=== PATIENT | female | born 1955 | race Caucasian/White ===

== ENCOUNTER 2017-12-22 14:40 | Inpatient (IN) | payer BC ==
[~2017-12-22] VITALS: Ht 152.4 cm; Wt 58.1 kg
[2017-12-29] MEDS ORDERED: LEVOTHYROXINE25 MCG PO (15:56)
[2017-12-29] MEDS ORDERED: VITAMIN B-12500 MC3 SL (15:56)
[2017-12-29] MEDS ORDERED: XANAX0.5 MG PO (15:58)
[2017-12-29] MEDS ORDERED: MAG GLYCINATE100 MG PO (15:58)
--- NOTE | 2017-12-30 09:30 | NUR ---
RESTS WATCHING TV. STATES NO NEEDS. IV PATENT. UPDATE GIVEN.
--- NOTE | 2017-12-30 09:50 | NUR ---
up to br. warm blanket on.
--- NOTE | 2017-12-30 12:24 | NUR ---
12/30/17 1224 Josie Shelton 1211 PT ARRIVED IN PACU WITH ORAL AIRWAY IN PLACE. 1216 PT AWAKE. ORAL AIRWAY REMOVED BY ANESTHESIA.
--- NOTE | 2017-12-30 13:10 | NUR ---
PT TO FLOOR FROM PACU AT 1300 VIA SONY, ACCOMPANIED BY ALICIA FISHER. RECIEVED BEDSIDE REPORT FROM PHILLIP. PT MOVED SELF FROM STRECHER TO BED. PT DENIES PAIN OR DISCOMFORT. DENIES NAUSEA. PT'S DAUGHTER AT BEDSIDE.
--- NOTE | 2017-12-30 13:30 | NUR ---
THIS GERIATRICS PHYSICIAN AND MARCE AKHN ASSISTED THE PATIENT BY GETTING COMFORTABLE IN BED. WELL GETTING FRESH WATER. CALL LIGHT WITHIN REACH. NO OTHER NEEDS AT THIS TIME.
--- NOTE | 2017-12-30 14:35 | NUR ---
PT IN BED, TOLERATED CLEAR LIQUIDS. REPORTS "MILD NAUSEA", BUT STATED THAT SHE DOES NOT WANT TO TAKE ANY MEDICATION FOR THIS AT THIS TIME. DENIES PAIN. REPORTS THAT THE TINGLING SENSATION IN HER LEGS HAS DECREASED, BUT NOT YET RESOLVED. VSS. PT DENIES NEEDS AT THIS TIME. PERSONAL SUPPLIES IN REACH, CALL LIGHT IN REACH.
--- NOTE | 2017-12-30 14:54 | NUR ---
PT C/O NAUSEA. GAVE ZOFRAN 4 MG IV PRN. DENIED PAIN. SITTING UP IN BED.
--- NOTE | 2017-12-30 15:44 | NUR ---
PATIENT RESTING IN BED WITH EYES CLOSED. WARM BLANKET GIVEN. PATIENT STATES THAT HER SHE HAS NO MORE NAUSEA. CALL BUTTON IN REACH. FRESH ICE WATER GIVEN. NO OTHER NEEDS AT THIS TIME.
--- NOTE | 2017-12-30 15:54 | NUR ---
PT IN BED, HOB ELEVATED. RESTING WITH EYES CLOSED. AROUSED TO VERBAL STIMULI. REPORTED THAT SHE STILL HAS SOME NAUSEA, BUT STATED THAT IT WAS NOT VERY BAD, AND REFUSED PRN ANTI NAUSEA MEDICATION AT THIS TIME. PT DENIED PAIN AT THIS TIME.
--- NOTE | 2017-12-30 17:15 | NUR ---
PT TO FLOOR FOLLOWING SURGERY. HAS VAG PACKING IN PLACE, SCANT BLOODY DRAINAGE FROM THIS. JANE CATHETER IN PLACE, BRIGHT YELLOW URINE. HAS DENIED PAIN THUS FAR. DID C/O NAUSEA, RECIEVED ZOFRAN 4 MG IV PRN, AND PT REPORTED RELIEF WITH THIS. HAS LR INFUSING AT 125 CC/HR. TOLERATED CLEAR LIQUIDS. ADAT.
--- NOTE | 2017-12-30 18:00 | NUR ---
PT HAD MODERATE AMOUNT OF BLOODY DRAINAGE FROM VAGINA. CHUCKS AND GOWN CHANGED, MESH PANTIES AND NANNETTE PAD PUT ON. PT THEN SAT UP AT EDGE OF BED, DANGLED FOR APROXIMATELY 4 MINUTES. PT TOLERATED THIS VERY WELL. PT THEN STOOD UP, AMBULATED IN ROOM. WALKED FROM SIDE OF BED NEXT TO GAGE DOOR, AROUND BED, INTO BATHROOM. AT THIS POINT PT BECAME NAUSEATED, HAD MODERATE AMOUNT OF RED TINGED CLEAR EMESIS IN TOILET. PT REPORTED THAT SHE NO LONGER FELT NAUSEATED AFTER EPISODE OF EMESIS. AMBULATED BACK TO BED WITH STANDBY ASSIST, AND IS NOW SITTING UP AT EDGE OF BED, CALL BUTTON AT SIDE, PERSONAL SUPPLIES IN REACH. PT REQUESTED CLEAR LIQUID TRAY, WHICH THIS RN ORDERED. URINE IN JANE BAG IS BRIGHT YELLOW.
--- NOTE | 2017-12-30 18:31 | NUR ---
Patient self-transferred from chair to bed. requested assistance with blankets and SCD. Brought warm blankets, requested help from Shwetha for SCD. Call light in reach.
--- NOTE | 2017-12-30 18:38 | NUR ---
PT IN BED. ATTEMPTED TO EAT CLEAR LIQUIDS, HAD EMESIS OF 100 CC. ENCOURAGED PT TO SLOW DOWN, JUST HAVE ICE CHIPS FOR NOW. PT AGREED. GAVE PT REGLAN 10 MG IV PRN. PERSONAL SUPPLIES AND CALL BUTTON IN REACH. PT DENIED OTHER NEEDS.
--- NOTE | 2017-12-30 18:52 | NUR ---
PATIENT RESTING IN BED. PATIENT HAD EMESIS OF 100ML. RN NOTIFIED. PATIENT STATES THAT SHE HAS 0 PAIN, BUT FEELS NAUSEOUS. REFUSED CLEAR LIQUID DINNER BECAUSE OF EMESIS. CALL LIGHT WITHIN REACH. NO OTHER NEEDS AT THIS TIME.
--- NOTE | 2017-12-30 20:00 | NUR ---
RECEIVED REPORT AT 1900, FOUND PT IN BED VOMITING. DAY SHIFT RN GAVE 12.5MG OF PHENERGAN. WILL CONTINUE TO MONITOR. PT DENIED PAIN.
--- NOTE | 2017-12-30 21:23 | NUR ---
VITALS AND I&OS DONE AND CHARTED. BEDSIDE TABLE AND CALL LIGHT WITHIN REACH.
--- NOTE | 2017-12-30 21:25 | NUR ---
ROUNDED CHARGE. PATIENT IS RESTING IN BED. PATIENT DENIES ANY PAIN AT THIS TIME. NO NEEDS NOTED. CALL LIGHT IN REACH.
--- NOTE | 2017-12-30 22:00 | NUR ---
V/S ARE WDL OVERALL, PT AT THIS TIME DENIES N/V. PAIN AT THIS TIME IS TOLERABLE STATED BY PT. ALL LOBES ARE CLEAR, ABD SOUNDS ARE HYPOACTIVE, PT IS PASSING GAS. URINE OUTPUT IS ADEQUATE, VAGINAL BLEEDING IS MINIMAL. NO NEW CONCERNS AT THIS TIME.
--- NOTE | 2017-12-31 | NUR ---
PT IS SLEEPING.
--- NOTE | 2017-12-31 02:00 | NUR ---
ABD SOUNDS ARE NORMALLY ACTIVE. PT DENIES N/V AND PAIN. VAGINAL BLEEDING IS SCANT AT THIS TIME. 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 NO NEW CONCERNS AT THIS TIME.
--- NOTE | 2017-12-31 04:07 | NUR ---
PT IS SLEEPING AT THIS TIME.
--- NOTE | 2017-12-31 05:55 | NUR ---
VITALS AND I&OS DONE AND CHARTED. GARBAGES EMPTIED. BEDSIDE TABLE AND CALL LIGHT IN REACH. PT NEEDS NOTHING ELSE AT THIS TIME.
--- NOTE | 2017-12-31 06:34 | NUR ---
AT START OF SHIFT PT HAD N/V. ZOFRAN, REGLAN AND PHENERGAN WAS GIVEN. PT HAS SINCE DENIED N/V AND PAIN. VAGINAL BLEEDING WAS MODERATE AT START OF SHIFT AND IS NOW SCANT. V/S ARE WDL, ABD SOUNDS ARE PRESENT AND PT IS PASSING GAS. PT SLEPT MOST OF THE NIGHT. PT WALKED AT 0615 TODAY UP AND DOWN THE GAGE. JANE WAS D/C AT 0630. NO NEW CONCERNS AT THIS TIME.
[2017-12-31] MEDS ORDERED: L-METHYLFOLATE7.5 M1 PO (07:52)
[2017-12-31] MEDS ORDERED: PHILLIPS' COLO1 EACH PO (07:53)
--- NOTE | 2017-12-31 08:10 | NUR ---
STANDBY ASSIST TO BATHROOM. PATIENT SAYS SHE MAY BE ON TOILET FOR A BIT, WILL USE CALL BUTTON.
[2017-12-31] MEDS ORDERED: VITAMIN C500 M1 PO (08:42)
--- NOTE | 2017-12-31 08:49 | NUR ---
MED REC COMPLETE
--- NOTE | 2017-12-31 09:21 | NUR ---
DR. WEBER TO ROOM REMOVED PACKING THIS MORNING. PATIENT UP AMBULATING IN HALLS. NO NAUSEA/VOMITING, TOLERATED BREAKFAST WELL. PATIENT STATES " I AM NOT HAVING ANY PAIN " REPORTS 0/10 ON PAIN SCALE. SALINE LOCKED. SET UP FOR SHOWER.
--- NOTE | 2017-12-31 09:58 | NUR ---
PT IS UP IN ROOM WALKING AROUND, CALL LIGHT IN REACH. PT DID NOT NEED ANYTHING AT THE MOMENT
--- NOTE | 2017-12-31 11:00 | NUR ---
PATIENT PVR PROGRESSING WELL. PATIENT UP AMBULATING IN HALLS. REPORTS SOME SORENESS, RATES PAIN 2/10 ON PAIN SCALE. DENIES NEEDS FOR PAIN CONTROL. PATIENT NOW SITTING UP AND EATING SOME LUNCH. VS STABLE.
--- NOTE | 2017-12-31 11:45 | NUR ---
DISCUSSED DISCHARAGE INSTRUCITONS WITH PATIENT. DISCUSSED S/S OF INFECTION. MEDICAITON MANAGMENT. PATIENT ABLE TO TEACH BACK. PROVIDED DAUGHTER WITH SCRIPTS TO FILL, PATIENT VOIDING WELL. PATIENT ABLE TO TEACH BACK RESTRICITONS. WILL BE STAYING WITH DAUGTER NEXT COUPLE OF WEEKS.
--- NOTE | 2017-12-31 12:22 | NUR ---
DR. WEBER TO ROOM, DISCUSSED DISHARGE INSTRUCTIONS. PLAN TO DISCHARGE PATIENT NOW. FULL BODY ASSESMENT DONE. PATIENT ABLE TO TEACH BACK DISCHARGE INSTRUCTIONS.
[2017-12-31] MEDS ORDERED: ULTRAM50 MG PO (12:34)
[2017-12-31] MEDS ORDERED: IBUPROFEN800 MG PO (12:34)
[2017-12-31] MEDS ORDERED: KONDREMUL2.5 ML/5 M PO (12:35)
[2017-12-31] MEDS ORDERED: REGLAN10 MG PO (12:35)
[2017-12-31] MEDS ORDERED: SENNA-DOCUSATE1 EAC1 PO (12:36)
--- NOTE | 2017-12-31 13:23 | NUR ---
PT ANXIOUS TO BE DC'D. WALKING UP AND DOWN HALLS, REALLY ENJOYING FEELING BETTER. THANKFUL FOR CARE SHE HAS RECEIVED AT [facility]. EXTENDED A BLESSING.
--- NOTE | 2018-01-05 08:36 | OR ---
[facility] [address] [place], [place] [address] Signed DATE OF OPERATION: 12/30/2017 SURGEON: Cris Chapman MD METAL TREATER: Randy Kingston MD PREOPERATIVE DIAGNOSES: Cystocele, rectocele. POSTOPERATIVE DIAGNOSES: Cystocele, rectocele, plus enterocele. PROCEDURES: Cystocele repair with dermis reinforcement, cystoscopy, rectocele repair with dermis reinforcement, and enterocele resection. ANESTHESIA: Spinal with IV sedation. ESTIMATED BLOOD LOSS: 100 mL. DRAINS: Alexander catheter. PACKS: Vaginal. INDICATIONS AND FINDINGS: The patient is a 62-year-old female 2, para 2, status post prior vaginal hysterectomy and sling procedure, who has now developed vaginal bulging with notable cystocele and rectocele. At the time of surgery, she had a grade 2 cystocele and a grade 2 rectocele. During the repair, she was also found to have a large enterocele. DESCRIPTION OF PROCEDURE: The patient was prepped and draped in the dorsal lithotomy position. A weighted speculum was placed and the anterior wall of vagina was examined. The scar from her prior sling was also identified. The vaginal mucosa was then incised from the sling scar to the apex of the vagina. The vaginal mucosa was then from the Electronically Signed By: CRIS CHAPMAN MD 01/05/18 0836 PATIENT NAME: EMILY MACDONALD OPERATIVE REPORT DATE OF : 53 REPORT #: [id number] PHYSICIAN: CRIS CHAPMAN MD PCP: CRIS CHAPMAN MD REPORT IS CONFIDENTIAL AND NOT TO BE RELEASED WITHOUT AUTHORIZATION [facility] [address] [place], [place] [address] Signed underlying tissue with a combination of blunt and sharp dissection. This was carried out laterally to behind the pubic rami. Following this, the perivesical fascia was repaired with interrupted sutures of 0 Vicryl and plicated to the midline. The dermis graft was trimmed into a small square was also placed over this repair and stitched into place with interrupted sutures of 2-0 Vicryl. The vaginal mucosa was then trimmed significant amount because of the redundancy and the vaginal mucosa was closed with running suture of 2-0 Vicryl. Following this, a cystoscopy was done to assure there was no damage done to the bladder during this repair. The Alexander catheter was removed and the obturator was placed into the urethra and bladder. The 30-degree scope was used and the bladder examined with no evidence of any abnormalities. Both ureteral orifices were identified and were seen to eject clear fluorescein stained urine. Following this, the cystoscope was removed after allowing as much fluid to drain from the bladder as possible and the Alexander catheter was replaced. Following this, the rectocele repair was begun. A triangle of tissue was removed from the perineal body with a knife. The vaginal mucosa was then undermined and incised in the midline to the apex of the vagina. The vaginal mucosa was from the underlying tissues with a combination of blunt and sharp dissection, and this was carried out to the sacrospinous ligaments on each side. During this dissection, an enterocele sac was identified and entered with a small hole. Following this, a rectal examination was done which showed that the great majority of the defect was a large enterocele at the upper 3rd of the vagina. The lower portion was a rectocele, but there was very thin tissue in this area. Following this, the enterocele sac was opened more and the edges identified and it was dissected free. A pursestring suture of 2-0 Chromic was used to come around the base of the enterocele and this was tied down. The enterocele tissue was then excised sharply. Following this, the Capio device was used to place a 0 Vicryl suture into the sacrospinous ligaments on each side for use later. Because of the defect in the lower aspect of the vagina and the thinness of this wall, a very superficial suture of 2-0 chromic was used in a pursestring manner to reduce this defect as well. Another rectal examination was done following this to assure that there were no sutures within the rectum. Following this, interrupted sutures of 0 Vicryl were used to plicate the perirectal fascial type tissue. Following this, the defect in the vagina was closed and another rectal examination was done which confirmed that there were no sutures within the rectal lumen. Dermis which had been prepared according to package directions and trimmed into a [id number] shape was then sutured at the arms to the sutures of the sacrospinous ligaments and tied down with appropriate tension. This graft was tacked across the top of the vaginal cuff, at the armhole areas, and down the sides. Following this, another rectal examination was done which confirmed that there were no sutures compromising in the rectal lumen. FloSeal was injected around the sacrospinous ligaments on each side to aid in hemostasis. The vaginal tissue was then trimmed quite a large amount because of the redundancy. The vaginal mucosa was then closed but Electronically Signed By: CRIS CHAPMAN MD 01/05/18 0836 PATIENT NAME: EMILY MACDONALD OPERATIVE REPORT DATE OF : 53 REPORT #: [id number] PHYSICIAN: CRIS CHAPMAN MD PCP: CRIS CHAPMAN MD REPORT IS CONFIDENTIAL AND NOT TO BE RELEASED WITHOUT AUTHORIZATION [facility] [address] [place] [place] [address] Signed it was noted to be kind of a Y shaped defect at the upper aspect of the vagina. At this point, the right-sided Y portion was closed in a running suture of 2-0 Vicryl and the suture was left for use later. The left-sided Y was then repaired with a running suture of 2-0 Vicryl and this was tied off as the stem was reached. The other suture was then used to repair the remaining defect in the center. This was carried down to the hymenal ring. Following this, the vagina was re-visualized. There appeared to be some bleeding near the upper aspect on the patient's left-hand side and another suture of the 2-0 Vicryl was used to gain hemostasis. Following this, very superficial sutures which were taken fairly laterally were used to plicate the perineal body using the 2-0 Vicryl. The posterior fourchette was recreated with a running suture of 2-0 Vicryl and the skin of the perineum was closed with interrupted sutures of 2-0 Vicryl. Inspection of the vault showed good length and caliber. There was good hemostasis noted. Sulfa coated pack was used to pack the vagina to aid in hemostasis. All sponge and needle counts were correct. She tolerated the procedure well and was taken to the recovery room in good condition. MD SOL Hernández/KRSIHNAL /[id number] cc: Randy Kingston MD Copies: RANDY KINGSTON MD ~ Electronically Signed By: CRIS CHAPMAN MD 01/05/18 0836 PATIENT NAME: EMILY MACDONALD OPERATIVE REPORT DATE OF : 53 REPORT #: [id number] PHYSICIAN: CRIS CHAPMAN MD PCP: CRIS CHAPMAN MD REPORT IS CONFIDENTIAL AND NOT TO BE RELEASED WITHOUT AUTHORIZATION
== END 2017-12-31 13:30 | disposition home or self-care (01) | DRG 747 ==
LOC: DSVR 12-30 06:55 → MS 12-30 10:45
PROVIDERS: ADMIT Obstetrics & Gynecology
PROC: 0JUC0JZ Supplement of Pelvic Region Subcutaneous Tissue and Fascia with Synthetic Substitute, Open Approach (ICD-10-PCS; principal; 2017-12-30 10:45)
PROC: 0UQF0ZZ Repair Cul-de-sac, Open Approach (ICD-10-PCS; principal; 2017-12-30 10:45)
DX: N81.3 Complete uterovaginal prolapse (principal); Z88.0 Allergy status to penicillin; R11.0 Nausea; Z90.710 Acquired absence of both cervix and uterus
CPT/HCPCS: 00942; 36415; 51798; 80048; 85027; C1762; C2631; J1100; J1170; J1644; J1885; J2250; J2405; J2550; J2704; J2765; J3010; J3490; J7120